=== PATIENT | female | born 1955 | race Caucasian/White ===

== ENCOUNTER 2025-01-30 21:15 | Emergency (ER) | payer MEDICARE, SELFPAY ==
[2025-01-30 21:15] VITALS: BP 118/57; PULSE 73; RESP 18; TEMP 36.6; O2SAT 98; BMI 26.6
--- NOTE | 2025-01-30 21:30 | EDS_ITS ---
HPI History of Present Illness Chief Complaint: Other, Pain/Inj PFSH PFSH Medical History (Updated 01/30/25 @ 22:50 by Deja Latif) Anxiety Depression GERD (gastroesophageal reflux disease) Hyperlipemia Home Medications ?Medication ?Instructions ?Recorded ?Last Taken ?Type alprazolam 0.5 mg tablet 0.5 mg PO BID PRN PRN anxiet y 01/30/25 Unknown History atorvastatin 20 mg tablet 20 mg PO DAILY 01/30/25 Unkn own History pantoprazole 20 mg tablet,delayed 20 mg PO DAILY 01/30 Unknown History release propranolol 10 mg tablet 10 mg PO BID 01/30/25 Unknow n History trazodone 50 mg tablet 50 mg PO QHS 01/30/25 Unknow n History vortioxetine 10 mg tablet 10 mg PO DAILY 01/30/25 Unkn own History (Trintellix) Allergy/AdvReac Type Severity Reaction Status Date / Time No Known Allergies Allergy Verified 01/30/25 21:16 Social History Smoking Status: Never smoker EXAM Physical Exam Const Vital Signs: 01/30/25 21:15 01/30/25 22:06 01/30/25 23:13 Temperature 98 F 97.6 F L Temperature Source Temporal Pulse Rate 73 68 Respiratory Rate 18 18 Respiratory Effort Normal Respiratory Pattern Normal Blood Pressure 118/57 L 110/50 L Blood Pressure Mean 77 70 Pulse Ox 98 97 Oxygen Delivery Method Room Air MDM MDM MDM Narrative Medical decision making narrative: HISTORY OF PRESENT ILLNESS: Chief complaint: Tongue burning 69-year-old female history of burning mouth syndrome presents with concern for swollen/burning tongue for the last week. She further states for the last week she has had pain in her tongue. She notes jaw pain and headache. She also headache came on gradually. Patient denies sudden onset or thunderclap headache, denies maximal intensity within 1 minute, vomiting, neck pain, stiffness, changes in vision, fever, history malignancy, syncope, or seizures associated with headache. Denies neck stiffness or fever. Denies falls or trauma. Denies visual changes. REVIEW OF SYSTEMS: Pertinent positives: Burning tongue, headache, jaw pain Pertinent negatives: Chest pain, focal loss of movement or sensation, facial drooping, slurred speech PHYSICAL EXAM: Nursing triage notes reviewed, Vital signs reviewed Constitutional: please see mdm HENT: MMM, posterior oropharynx patent, uvula midline, no erythema, exudates noted. Tongue did appear irregular slightly inflamed/erythematous. No obvious lesions noted on the tongue. No obvious herpetic lesions. No temporal artery tenderness noted Eyes: Pupils equal round and reactive to light, Extraocular muscles intact Neck: No stridor, no JVD, full neck ROM Lungs: Clear to auscultation, No wheezing or rales. No increased work of breathing, no conversational dyspnea, no accessory muscle use, no nasal flaring. No respiratory distress noted Heart: Regular rate and rhythm, No murmurs, No rubs and No gallops, 2+ distal pulses (radial, femoral, posterior tibial) in all extremities Abdomen: Soft, there is no tenderness, rigidity, rebound or guarding, no obvious peritoneal signs, no palpable pulsatile abdominal masses, no auscultated abdominal bruit : No CVAT Extremities: No edema Neuro: No new focal neurological deficits, cranial nerves II through XII intact, 5/5 strength in all present extremities. Intact sensation to light touch in all present extremities, 2+ reflexes bilateral patella tendons. Skin: No rash or lesions noted MEDICAL DECISION MAKING: Chief Complaint: please see HPI External records reviewed: No records in [facility] Factors affecting care: none Social determinants of health: none History obtained from others: none Consults: none [facility] Narrative: Patient was initially hemodynamically stable, afebrile and nontoxic-appearing. Exam without signs of respiratory distress. Patient was breathing comfortably. Tongue did appear slightly irregular may be more inflamed than usual. Otherwise patient had a patent posterior oropharynx. She was in no respiratory distress there is no stridor. The patient did complain of headache which prompted a CT scan of her brain given her age to rule out ICH. I considered the following differential diagnosis: ICH, mass, meningitis, burning tongue syndrome I obtained to further determine if the patient was suffering from a life-threa tening etiology. Gave Reglan and ibuprofen for symptomatic control ALL IMAGES (IF OBTAINED) HAVE BEEN PERSONALLY REVIEWED AND INTERPRETED BY MYSELF. CT scan of the brain negative for ICH mass or other intracranial abnormalities. The patient's history and physical exam are consistent with meningitis Of note patient already has steroids, Magic mouthwash and other topical treatments. I encouraged her to continue these treatments. I further recommended outpatient rheumatology follow-up. The patient and/or family, caregivers express understanding. The patient and/or family, caregivers agrees with the plan. Shared decision making: I will have a discussion with the patient and or visitors regarding risk/benefits of further testing or admission. They will be made aware of of the risk/benefits inherent in this decision they will be given the opportunity to voice understanding. Total critical care time today provided was at least 0 minutes. This excludes separately billable procedures. Critical care time (if documented) is secondary to the patient having high probability of clinically significant/life threatening deterioration in the patient's condition which required my urgent intervention. Impression: 1. Burning tongue syndrome 2. Headache Dispo: Discharge home This note was generated with [employer] dictation software. It may contain incorrect words, spelling, and punctuation that were not noted in review of the chart prior to signing. Radiography Diagnostic Testing: Clinical Impression(s) from Imaging Studies Brain CT 01/30/25 21:57 IMPRESSION: No acute intracranial abnormality. Reading Location: [facility] Discharge Plan Triage Chief Complaint: Other, Pain/Inj ED Provider: Zheng Bustillo Dx/Rx/DC Orders Instructions: Understanding Headache Pain Prescriptions: No Action atorvastatin 20 mg tablet 20 mg PO DAILY pantoprazole 20 mg tablet,delayed release (DR/EC) 20 mg PO DAILY Trintellix 10 mg tablet 10 mg PO DAILY trazodone 50 mg tablet 50 mg PO QHS alprazolam 0.5 mg tablet 0.5 mg PO BID PRN PRN (Reason: anxiety) propranolol 10 mg tablet 10 mg PO BID Primary Care Provider: Kecia Whitehead Referrals: Sharmin Trivedi MD [Med Staff - Buffer Operator] - Activity Restrictions/Additional Instructions: Thank you for trusting us with your care today! Your CT scan of the brain was negative for signs of bleeding or other abnormalities such as masses or cancer. Please continue to take recent prescribed steroids, acyclovir and Magic mouthwash. Please return to the emergency department if your symptoms change or worsen. Please follow with Rheumatology for further outpatient evaluation and management. Print Language: Frisian Disposition Disposition: Home, Self Care Discharge Date/Time: 01/30/25 23:14
--- NOTE | 2025-01-30 21:57 | CT_ITS ---
PROCEDURE: BRAIN/HEAD WITHOUT CONTRAST 01/30/2025 REASON FOR EXAM: HEADACHE TECHNIQUE: BRAIN/HEAD WITHOUT CONTRAST Coronal and Sagittal reconstruction series were provided. One or more dose reduction techniques were used (e.g., Automated exposure control, adjustment of the mA and/or kV according to patient size, use of iterative reconstruction technique. RADIATION DOSE SUMMARY: CTDlvol: 44.99 mGy DLP: 829.85 mGycm COMPARISON: None. FINDINGS: No acute intracranial hemorrhage, extra-axial collection, mass effect or evidence of acute infarct. Ventricles and subarachnoid spaces are normal in size. Orbital contents are unremarkable. Intact skull base and calvarium. Well-aerated paranasal sinuses and bilateral mastoid air cells and middle ear cavities. Small amount of mucoid debris in the left sphenoid sinus. CT/Brain/Head without Contrast IMPRESSION: No acute intracranial abnormality. Reading Location: [id number]
--- NOTE | 2025-01-30 21:57 | CT_ITS ---
PROCEDURE: BRAIN/HEAD WITHOUT CONTRAST 01/30/2025 REASON FOR EXAM: HEADACHE TECHNIQUE: BRAIN/HEAD WITHOUT CONTRAST Coronal and Sagittal reconstruction series were provided. One or more dose reduction techniques were used (e.g., Automated exposure control, adjustment of the mA and/or kV according to patient size, use of iterative reconstruction technique. RADIATION DOSE SUMMARY: CTDlvol: 44.99 mGy DLP: 829.85 mGycm COMPARISON: None. FINDINGS: No acute intracranial hemorrhage, extra-axial collection, mass effect or evidence of acute infarct. Ventricles and subarachnoid spaces are normal in size. Orbital contents are unremarkable. Intact skull base and calvarium. Well-aerated paranasal sinuses and bilateral mastoid air cells and middle ear cavities. Small amount of mucoid debris in the left sphenoid sinus. CT/Brain/Head without Contrast IMPRESSION: No acute intracranial abnormality. Reading Location: [id number]
[2025-01-30 23:13] VITALS: BP 110/50; PULSE 68; RESP 18; TEMP 36.4; O2SAT 97
== END 2025-01-30 23:14 | disposition home or self-care (01) ==
PROVIDERS: Emergency Provider Emergency Medicine; PCP Internal Medicine; Visit Provider Emergency Medicine
DX: K14.6 Glossodynia (principal); R51.9 Headache, unspecified
CPT/HCPCS: 70450; 99283